=== PATIENT | female | born 1985 | race Caucasian/White ===

== ENCOUNTER 2017-09-03 05:03 | Emergency (ER) | payer OTHER ==
[~2017-09-03] VITALS: Ht 154.9 cm; Wt 73.9 kg
[~2017-09-03 05:03] MED LIST: ATARAX,VISTARIL25 MG PO; PEPCID AC20 MG PO; VENTOLIN HFA18 GM IH
[2017-09-03 06:41] LABS: BASOPHIL (%) 0.2 % (0-1); EOSINOPHIL (%) 0.9 % (0-5); EOSINOPHIL COUNT 0.1 K/uL (0-0.3); HEMATOCRIT 36.3 % (36.0-46.0); HEMOGLOBIN 12.9 G/DL (11.9-15.5); IMMATURE GRANULOCYTE (%) 0.3 % (0.0-0.7); LYMPHOCYTE (%) 18.8 % (15-42); LYMPHOCYTE COUNT 1.6 K/uL (1.0-2.8); MCH 32.2 PG (29.0-34.0); MCHC 35.5 G/DL (30.0-36.0); MCV 90.5 FL (83-99); MONOCYTE (%) 6.5 % (3-12); MONOCYTE COUNT 0.6 K/uL (0-0.8); NEUTROPHIL (%) 73.3 % (45-76); NEUTROPHIL COUNT 6.3 K/uL (1.8-6.4); PLATELET COUNT 288 K/uL (156-360); RBC DIS.WIDTH-CV 12.3 % (11.8-14.6); RBC DIS.WIDTH-SD 40.5 % (39-53); RED BLOOD COUNT 4.01 M/uL (3.80-5.20); WHITE BLOOD COUNT 8.6 K/uL (4.1-10.2)
[2017-09-03 06:56] LABS: CHLORIDE 104 MEQ/L (99-109); POTASSIUM 3.3 MEQ/L (3.7-5.4); SODIUM 139 MEQ/L (136-147)
[2017-09-03 07:01] LABS: CREATININE 0.7 MG/DL (0.6-1.3); GFR ESTIMATE (CALCULATED) > 59 mL/min/; GLUCOSE 111 mg/dL (70-99); UREA NITROGEN (BUN) 14 mg/dL (9-23)
[2017-09-03] MEDS ORDERED: FIORICET 50-301 EAC1 PO (09:08)
[2017-09-03 09:40] VITALS: BP 124/87
== END 2017-09-03 09:42 | disposition home or self-care (01) ==
LOC: EME 05:03
PROVIDERS: Emergency Medicine
DX: R51 Headache (principal); F41.9 Anxiety disorder, unspecified; S13.9XXA Sprain of joints and ligaments of unspecified parts of neck, initial encounter; R11.2 Nausea with vomiting, unspecified; Z86.73 Personal history of transient ischemic attack (TIA), and cerebral infarction without residual deficits; X58.XXXA Exposure to other specified factors, initial encounter
CPT/HCPCS: 70450; 80048; 85025; 99281; 99285; J1885; J2765; J7030

== ENCOUNTER 2017-09-07 00:37 | Emergency (ER) | payer OTHER ==
[~2017-09-07] VITALS: Ht 154.9 cm; Wt 75.4 kg
[~2017-09-07 00:37] MED LIST changes: +FIORICET 50-301 EAC1 PO
[2017-09-07] MEDS ORDERED: VALIUM5 MG PO (02:49)
[2017-09-07] MEDS ORDERED: PERCOCET 5/31 TABLET PO (02:49)
[2017-09-07 02:59] VITALS: BP 146/89
== END 2017-09-07 03:02 | disposition home or self-care (01) ==
LOC: EME 00:37
PROC: 3E023BZ Introduction of Anesthetic Agent into Muscle, Percutaneous Approach (ICD-10-PCS; principal; 2017-09-07)
DX: R51 Headache (principal); M54.81 Occipital neuralgia; Z88.0 Allergy status to penicillin
CPT/HCPCS: 99281; 99285